=== PATIENT | male | born 1970 | race Hispanic/Latino ===

== ENCOUNTER 2020-03-30 15:06 | Emergency (ER) | payer OTHER ==
[~2020-03-30] VITALS: Ht 175.3 cm; Wt 81.8 kg
[~2020-03-30 15:06] MED LIST: NO MEDS
[2020-03-30 17:35] VITALS: BP 158/91
== END 2020-03-30 17:35 | disposition home or self-care (01) | DRG 951 ==
LOC: ED 15:06
DX: Z20.828 Contact with and (suspected) exposure to other viral communicable diseases (principal)

== ENCOUNTER 2023-05-19 20:32 | Emergency (ER) | payer OTHER ==
[~2023-05-19] VITALS: Ht 175.3 cm; Wt 86.2 kg
[2023-05-19] MEDS ORDERED: KEFLEX500 MG PO (22:28)
[2023-05-19 23:53] VITALS: BP 151/93
== END 2023-05-19 23:53 | disposition home or self-care (01) | DRG 605 ==
LOC: ED 20:32
DX: S61.301A Unspecified open wound of left index finger with damage to nail, initial encounter (principal); W31.89XA Contact with other specified machinery, initial encounter; Y93.89 Activity, other specified; Y99.0 Civilian activity done for income or pay